=== PATIENT | female | born 1985 | race Caucasian/White ===

== ENCOUNTER 2019-07-28 14:22 | Observation (INO) | payer OTHER ==
--- NOTE | 2019-07-28 15:05 | ED ---
Recheck HPI - General Source: EMS Mode of arrival: EMS Limitations: no limitations <Maria De Jesus Bella - Last Filed: 07/28/19 17:04> <Ludy Cunningham - Last Filed: 08/05/19 14:08> - General Chief Complaint: Recheck/Abnormal Lab/Rx Stated Complaint: Hypertension Time Seen by Provider: 07/28/19 14:32 - History of Present Illness Initial Comments: 33-year-old female IV drug users 9 days presents emergency department for elevated blood pressure. Patient states she attempted to check in at [place] however was found to have elevated blood pressure and bilateral hand and leg swelling and was sent to the emergency department for further evaluation. Patient states that she did not have elevation of blood pressure before or during her . Patient states she did have the swelling near the end of her term. She states it has been persistent, if not better. Denies any chest pain shortness of breath. Denies nausea vomiting abdominal pain headache visual changes seizure activity. Denies heavy vaginal bleeding, fevers, discharge. Patient denies any other complaints appears nontoxic upon arrival. OBGYN not from this area, high risk due to drug use. (Maria De Jesus Bella) - Related Data Home Medications Medication Instructions Recorded Confirmed Buprenorphine HCl/Naloxone HCl 1 film SL DAILY 07/28/19 07/28/19 [Suboxone 8 mg-2 mg Sl Film] Allergies Allergy/AdvReac Type Severity Reaction Status Date / Time No Known Allergies Allergy Verified 07/28/19 17:41 Review of Systems ROS Other: All systems not noted in ROS Statement are negative. <Maria De Jesus Bella - Last Filed: 07/28/19 17:04> ROS Other: All systems not noted in ROS Statement are negative. <Ludy Cunningham - Last Filed: 08/05/19 14:08> ROS Statement: Those systems with pertinent positive or pertinent negative responses have been documented in the HPI. Past Medical History Past Medical History: Pneumonia Additional Past Medical History / Comment(s): hepatitis c History of Any Multi-Drug Resistant Organisms: None Reported Past Surgical History: Tonsillectomy Past Psychological History: Depression Smoking Status: Current every day smoker Past Alcohol Use History: None Reported Past Drug Use History: Cocaine, Heroin, Methamphetamine <Maria De Jesus Bella - Last Filed: 07/28/19 17:04> General Exam Limitations: no limitations <Maria De Jesus Bella - Last Filed: 07/28/19 17:04> - General Exam Comments Initial Comments: General: The patient is awake and alert, in no distress, and does not appear acutely ill. Eye: +3 mm pupils are equal, round and reactive to light, extra-ocular movements are intact. No nystagmus. There is normal conjunctiva bilaterally. No signs of icterus. Ears, nose, mouth and throat: There are moist mucous membranes and no oral lesions. Neck: The neck is supple, there is no tenderness or JVD. Cardiovascular: There is a regular rate and rhythm. No obvious murmur, rub or gallop is appreciated. Respiratory: Lungs are clear to auscultation, respirations are non-labored, breath sounds are equal. No wheezes, stridor, rales, or rhonchi. Gastrointestinal: Soft, non-distended, non-tender abdomen without masses or organomegaly noted. There is no rebound or guarding present. Musculoskeletal: Normal ROM, no tenderness. Strength 5/5. Sensation intact. Radial pulses equal bilaterally 2+. Neurological: A&O x 3. CN II-XII intact grossly, There are no obvious motor or sensory deficits. Coordination appears grossly intact. Speech is normal. Skin: Skin is warm and dry and no rashes or lesions are noted. No splinter hemorrhages or Janeway lesions or Osler nodes appreciated. Nonpitting edema of the bilateral lower extremities and UE b/l. Psychiatric: Cooperative, appropriate mood & affect, normal judgment. (Maria De Jesus Bella) Course Vital Signs 07/28/19 07/28/19 07/28/19 14:23 14:29 15:49 Temperature 97.9 F Pulse Rate 52 L Respiratory 19 Rate Blood Pressure 159/101 149/82 O2 Sat by Pulse 98 Oximetry 07/28/19 17:42 Temperature Pulse Rate 51 L Respiratory 21 Rate Blood Pressure 144/89 O2 Sat by Pulse 99 Oximetry Medical Decision Making - Lab Data Result diagrams: 07/28/19 15:32 07/28/19 15:32 <Maria De Jesus Bella - Last Filed: 07/28/19 17:04> - Lab Data Result diagrams: 07/28/19 15:32 07/28/19 15:32 <Ludy Cunningham Last Filed: 08/05/19 14:08> - Medical Decision Making 33-year-old female presented for extremity edema elevated blood pressure. Concern for preeclampsia. OB consult it after discussed the case by attending provider. LDH and uric acid pending. Blood pressure downward trending on repeat values. Patient denies any headache nausea vomiting abdominal pain visual changes seizures. Patient denies chest pain shortness of breath. Appears well. OBGYN recommended holding Magnesium at this time. Patient labs within acceptable limits aside from elevation of troponin at .132. Patient denies chest pain, fever, thrombocytopenia or noted thrombotic events. Patient will be admitted given history of IVDU for further evaluation of elevated troponin. Dr. Cunningham spoke to admitted provider who recommending trending levels and cardiology consultation. Ventricular rate 47 bpm, FL interval 136 ms, QRS duration 74 ms, QT/QTc 512/53ms. No ST elevation or depression. (Maria De Jesus Bella) I was available for consultation in the emergency department. The history and physical exam were done by the midlevel provider. I was consulted for this patients care. I reviewed the case with the midlevel provider and based on their presentation of the patient, I agree with the assessment, medical decision making and plan of care as documented. I evaluated the patient and discussed case with Dr. Marion within 1 hour of patients arrival as there is concern for pre-eclampsia. Dr. marion presented to the ED and evaluated the patient. Pre- eclampsia less likely from his evaluation. Recommended medical admission. Called and discussed case with admitting physician who accepted admission. Chart was dictated using [email or web address] dictation software. Attempts were made to correct any dictation errors however some typographical errors may persist. (Ludy Cunningham) - Lab Data Lab Results 07/28/19 07/28/19 07/28/19 Range/Units 15:32 15:32 15:32 WBC 10.0 (3.8-10.6) k/uL RBC 4.37 (3.80-5.40) m/uL Hgb 14.0 (11.4-16.0) gm/dL Hct 42.3 (34.0-46.0) % MCV 96.7 (80.0-100.0) fL MCH 31.9 (25.0-35.0) pg MCHC 33.0 (31.0-37.0) g/dL RDW 12.3 (11.5-15.5) % Plt Count 347 (150-450) k/uL Neutrophils % 81 % Lymphocytes % 12 % Monocytes % 5 % Eosinophils % 1 % Basophils % 0 % Neutrophils # 8.1 H (1.3-7.7) k/uL Lymphocytes # 1.2 (1.0-4.8) k/uL Monocytes # 0.5 (0-1.0) k/uL Eosinophils # 0.1 (0-0.7) k/uL Basophils # 0.0 (0-0.2) k/uL Sodium 140 (137-145) mmol/L Potassium 4.3 (3.5-5.1) mmol/L Chloride 110 H (98-107) mmol/L Carbon Dioxide 25 (22-30) mmol/L Anion Gap 5 mmol/L BUN 17 (7-17) mg/dL Creatinine 0.61 (0.52-1.04) mg/dL Est GFR (CKD-EPI)AfAm >90 (>60 ml/min/1.73 sqM) Est GFR (CKD-EPI)NonAf >90 (>60 ml/min/1.73 sqM) Glucose 106 H (74-99) mg/dL Uric Acid 6.9 (3.7-7.4) mg/dL Calcium 9.0 (8.4-10.2) mg/dL Total Bilirubin 0.3 (0.2-1.3) mg/dL AST 22 (14-36) U/L ALT 34 (9-52) U/L Alkaline Phosphatase 160 H (38-126) U/L Lactate Dehydrogenase 576 (313-618) U/L Troponin I (0.000-0.034) ng/mL NT-Pro-B Natriuret Pep pg/mL Total Protein 6.6 (6.3-8.2) g/dL Albumin 3.5 (3.5-5.0) g/dL Urine Color Yellow Urine Appearance Clear (Clear) Urine pH 7.0 (5.0-8.0) Ur Specific [place] 1.020 (1.001-1.035) Urine Protein Trace H (Negative) Urine Glucose (UA) Negative (Negative) Urine Ketones Negative (Negative) Urine Blood Large H (Negative) Urine Nitrite Negative (Negative) Urine Bilirubin Negative (Negative) Urine Urobilinogen 2.0 (<2.0) mg/dL Ur Leukocyte Esterase Large H (Negative) Urine RBC 1 (0-5) /hpf Urine WBC 14 H (0-5) /hpf Ur Squamous Epith Cells 6 H (0-4) /hpf Urine Bacteria Rare H (None) /hpf Hyaline Casts 1 (0-2) /lpf Urine Mucus Rare H (None) /hpf 07/28/19 07/28/19 Range/Units 15:32 15:32 WBC (3.8-10.6) k/uL RBC (3.80-5.40) m/uL Hgb (11.4-16.0) gm/dL Hct (34.0-46.0) % MCV (80.0-100.0) fL MCH (25.0-35.0) pg MCHC (31.0-37.0) g/dL RDW (11.5-15.5) % Plt Count (150-450) k/uL Neutrophils % % Lymphocytes % % Monocytes % % Eosinophils % % Basophils % % Neutrophils # (1.3-7.7) k/uL Lymphocytes # (1.0-4.8) k/uL Monocytes # (0-1.0) k/uL Eosinophils # (0-0.7) k/uL Basophils # (0-0.2) k/uL Sodium (137-145) mmol/L Potassium (3.5-5.1) mmol/L Chloride (98-107) mmol/L Carbon Dioxide (22-30) mmol/L Anion Gap mmol/L BUN (7-17) mg/dL Creatinine (0.52-1.04) mg/dL Est GFR (CKD-EPI)AfAm (>60 ml/min/1.73 sqM) Est GFR (CKD-EPI)NonAf (>60 ml/min/1.73 sqM) Glucose (74-99) mg/dL Uric Acid (3.7-7.4) mg/dL Calcium (8.4-10.2) mg/dL Total Bilirubin (0.2-1.3) mg/dL AST (14-36) U/L ALT (9-52) U/L Alkaline Phosphatase (38-126) U/L Lactate Dehydrogenase (313-618) U/L Troponin I 0.132 H* (0.000-0.034) ng/mL NT-Pro-B Natriuret Pep 1230 pg/mL Total Protein (6.3-8.2) g/dL Albumin (3.5-5.0) g/dL Urine Color Urine Appearance (Clear) Urine pH (5.0-8.0) Ur Specific [place] (1.001-1.035) Urine Protein (Negative) Urine Glucose (UA) (Negative) Urine Ketones (Negative) Urine Blood (Negative) Urine Nitrite (Negative) Urine Bilirubin (Negative) Urine Urobilinogen (<2.0) mg/dL Ur Leukocyte Esterase (Negative) Urine RBC (0-5) /hpf Urine WBC (0-5) /hpf Ur Squamous Epith Cells (0-4) /hpf Urine Bacteria (None) /hpf Hyaline Casts (0-2) /lpf Urine Mucus (None) /hpf Disposition Is patient prescribed a controlled substance at d/c from ED?: No Time of Disposition: 17:02 Decision to Admit Reason: Admit from EC Decision Date: 07/28/19 Decision Time: 17:02 <Maria De Jesus Bella - Last Filed: 07/28/19 17:04> <Ludy Cunningham - Last Filed: 08/05/19 14:08> Clinical Impression: Bilateral hand swelling, Bilateral swelling of feet, Elevated blood pressure reading, Elevated troponin, Hypertensive emergency Disposition: ADMITTED IP TO THIS [facility] Condition: Stable
[2019-07-28 15:41] LABS: Basophils % (A) 0 %; Eosinophils # (A) 0.1 k/uL (0-0.7); Eosinophils % (A) 1 %; HCT 42.3 % (34.0-46.0); Lymphocytes # (A) 1.2 k/uL (1.0-4.8); Lymphocytes % (A) 12 %; MCH 31.9 pg (25.0-35.0); MCV 96.7 fL (80.0-100.0); Mean Platelet Volume 7.7; Monocytes # (A) 0.5 k/uL (0-1.0); Monocytes % (A) 5 %; Neutrophils # (A) 8.1 k/uL (1.3-7.7); Neutrophils % (A) 81 %; Platelet Count 347 k/uL (150-450); RBC 4.37 m/uL (3.80-5.40); RDW 12.3 % (11.5-15.5)
[2019-07-28 15:45] LABS: Appearance,Urine Clear (Clear); Bacteria,Urine Rare /hpf; Bilirubin,Urine Negative (Negative); Blood,Urine Large (Negative); Color,Urine Yellow; Glucose,Urine (UA) Negative (Negative); Hyaline Casts,Urine 1 /lpf (0-2); Ketones,Urine Negative (Negative); Leukocyte Esterase,Urine Large (Negative); Mucus,Urine Rare /hpf; Nitrite,Urine Negative (Negative); Protein,Urine Trace (Negative); RBC,Urine 1 /hpf (0-5); Squamous Epithelial Cell,Urine 6 /hpf (0-4); WBC,Urine 14 /hpf (0-5)
[2019-07-28 15:49] LABS: ALT 34 U/L (9-52); AST 22 U/L (14-36); African American GFR (CKD) >90 (>60 ml/min/1.73 sqM); Albumin 3.5 g/dL (3.5-5.0); Alkaline Phosphatase 160 U/L (38-126); Anion Gap 5 mmol/L; Blood Urea Nitrogen 17 mg/dL (7-17); Carbon Dioxide 25 mmol/L (22-30); Chloride 110 mmol/L (98-107); Glucose 106 mg/dL (74-99); LDH 576 U/L (313-618); Non-African American GFR(CKD) >90 (>60 ml/min/1.73 sqM); Potassium 4.3 mmol/L (3.5-5.1); Sodium 140 mmol/L (137-145); Total Bilirubin 0.3 mg/dL (0.2-1.3); Total Protein 6.6 g/dL (6.3-8.2); Uric Acid 6.9 mg/dL (3.7-7.4)
--- NOTE | 2019-07-28 15:59 | XR ---
EXAMINATION TYPE: XR chest 2V DATE OF EXAM: 07/28/2019 COMPARISON: NONE HISTORY: Bilateral hand and feet swelling TECHNIQUE: Frontal and lateral views of the chest are obtained. FINDINGS: There is no focal air space opacity, pleural effusion, or pneumothorax seen. The cardiac silhouette size is within normal limits. The osseous structures are intact. IMPRESSION: No acute cardiopulmonary process.
[2019-07-28] MEDS ORDERED: LOPERAMIDE 2 MG CAP PO PRN (18:03)
[2019-07-28] MEDS ORDERED: ACETAMINOPHEN TAB 325 MG TAB PO PRN (18:03)
[2019-07-28] MEDS ORDERED: NALOXONE 0.4 MG/ML 1 ML VIAL IV PRN (18:03)
[2019-07-28] MEDS ORDERED: ONDANSETRON 4 MG/2 ML VIAL IVP PRN (18:03)
[2019-07-28] MEDS ORDERED: HYDROcodone/APAP 5-325MG 1 EACH TAB PO PRN (18:03)
[2019-07-28] MEDS ORDERED: MELATONIN 3 MG TABLET PO PRN (18:03)
--- NOTE | 2019-07-28 18:24 | P.HPIM ---
History of Present Illness H&P Date: 07/28/19 Chief Complaint: Elevated BP, troponin elevation Patient is a 33-year-old female with history of IV heroin abuse that presents to the hospital after being sent from [place] for concerns of elevated blood pressure. Patient states that she recently gave to a healthy baby on 07/19/2019 in [facility]. Patient also reports that she overdosed on heroin 2 nights ago. She was taken to [facility] once again, given 3 doses of Narcan before being revived. She was discharged on Suboxone to be admitted to [place] but was subsequently sent here for elevated BP. Patient reports no specific symptoms except for fatigue. She has not used heroin over the last 2 days. Patient reports a drug history over the span of 6 years, on and off. Patient reports using 0.5-1 g of heroin daily. There was also some concerns for puffy hands and legs but patient states that the swelling has actually come down since her and giving . She denies any headaches, nausea or vomiting, fever, cough, chest pain, shortness of breath, changes in urination or bowel habits. No changes in appetite or weight. She does report some chills and sweats but attributes this to heroin withdrawal. In the ED, she was noted to have a BP of 159/101. Vital signs were otherwise stable. CBC was unremarkable. CMP showed chloride of 110, glucose of 106 and alkaline phosphatase of 160. Troponin was elevated at 0.132, EKG showed sinus bradycardia. BNP was 1230, chest x-ray was negative. Urinalysis showed large leukocyte esterase and trace protein. Patient is admitted for elevated troponins and hypertensive urgency with cardiology on consult. Review of Systems Pertinent positives and negatives as discussed in HPI, a complete review of systems was performed and all other systems are negative. Past Medical History Past Medical History: Pneumonia Additional Past Medical History / Comment(s): hepatitis c History of Any Multi-Drug Resistant Organisms: None Reported Past Surgical History: Tonsillectomy Past Psychological History: Depression Smoking Status: Current every day smoker Past Alcohol Use History: None Reported Past Drug Use History: Cocaine, Heroin, Methamphetamine Medications and Allergies Home Medications Medication Instructions Recorded Confirmed Type Buprenorphine HCl/Naloxone HCl 1 film SL DAILY 07/28/19 07/28/19 History [Suboxone 8 mg-2 mg Sl Film] Pnv,Calcium 72/Iron/Folic Acid 1 tab PO DAILY 07/28/19 07/28/19 History [ Plus Tablet] Allergies Allergy/AdvReac Type Severity Reaction Status Date / Time No Known Allergies Allergy Verified 07/28/19 17:41 Physical Exam Vitals: Vital Signs Temp Pulse Resp BP Pulse Ox 07/28/19 17:42 51 L 21 144/89 99 07/28/19 15:49 149/82 07/28/19 14:29 159/101 07/28/19 14:23 97.9 F 52 L 19 98 Intake and Output 07/28/19 07/28/19 07/28/19 06:59 14:59 22:59 Other: Weight 67.585 kg General: [non toxic], [no distress], [appears at stated age] Derm: [warm], [dry] Head: [atraumatic], [normocephalic], [symmetric] Eyes: [EOMI], [no lid lag], [anicteric sclera] Mouth: [no lip lesion], [mucus membranes moist] Cardiovascular: [S1S2 reg], [no murmur], [positive DP pulse bilateral], Lungs: [CTA bilateral], [no rhonchi, no rales] , [no accessory muscle use] Abdominal: [soft], [ nontender to palpation], [no guarding], [no appreciable organomegaly] Ext: [no gross muscle atrophy], [1+ pitting lower extremity edema], [no contractures], [needle wei seen on the upper extremities bilaterally] Neuro: [ CN II-XI grossly intact], [no focal neuro deficits] Psych: [Alert], [oriented], [appropriate affect] Results CBC & Chem 7: 07/28/19 15:32 07/28/19 15:32 Labs: Abnormal Lab Results - Last 24 Hours (Table) 07/28/19 07/28/19 07/28/19 Range/Units 15:32 15:32 15:32 Neutrophils # 8.1 H (1.3-7.7) k/uL Chloride 110 H (98-107) mmol/L Glucose 106 H (74-99) mg/dL Alkaline Phosphatase 160 H (38-126) U/L Troponin I (0.000-0.034) ng/mL Urine Protein Trace H (Negative) Urine Blood Large H (Negative) Ur Leukocyte Esterase Large H (Negative) Urine WBC 14 H (0-5) /hpf Ur Squamous Epith Cells 6 H (0-4) /hpf Urine Bacteria Rare H (None) /hpf Urine Mucus Rare H (None) /hpf 07/28/19 Range/Units 15:32 Neutrophils # (1.3-7.7) k/uL Chloride (98-107) mmol/L Glucose (74-99) mg/dL Alkaline Phosphatase (38-126) U/L Troponin I 0.132 H* (0.000-0.034) ng/mL Urine Protein (Negative) Urine Blood (Negative) Ur Leukocyte Esterase (Negative) Urine WBC (0-5) /hpf Ur Squamous Epith Cells (0-4) /hpf Urine Bacteria (None) /hpf Urine Mucus (None) /hpf Assessment and Plan Assessment: Assessment and plan Troponin elevation likely demand ischemia from hypertensive urgency Hypertensive urgency, rule out preeclampsia Heroin abuse and withdrawal Abnormal urinalysis Troponin 0.132 with EKG showing sinus bradycardia. Patient has not complaining of any chest pain at this time. Likely due to demand ischemia from hypertensive urgency. Plans: Trend troponin/EKG to rule out ACS. Telemetry monitoring. Follow-up echocardiogram. Follow cardiology consultation. BP 159/101. UA showing trace proteinuria. Also has swelling in the extremities. Plans: Start clonidine, should also help with withdrawal symptoms. Avoid beta alejandra due to bradycardia. Consult OB to rule out preeclampsia. Monitor vitals, adjust medication as necessary. Plans: Needs [place]. We'll start methadone in the meantime. Imodium, Zofran as needed for diarrhea or nausea/vomiting. UA shows large leukocyte esterase. Patient asymptomatic. Plans: No antibiotics at this time. DVT prophylaxis: [SCD] Discussed with: [Patient] Anticipated discharge: [1-2 days] Anticipated discharge place: [[place]] A total of [45] minutes was spent on the care of this complex patient more than 50% of the time was spent in counseling and care coordination. Patient is admitted for anticipated greater than 48 hour admission for troponin elevation and hypertensive urgency. She is also showing signs of preeclampsia with OB consulted.
[2019-07-28 18:28] VITALS: BMI 27.2
[2019-07-28] MEDS: METHADONE 5 MG TAB PO SCH (18:56)
[2019-07-28] MEDS: cloNIDine HCL 0.1 MG TAB PO SCH (20:32)
[2019-07-29] MEDS: METHADONE 5 MG TAB PO SCH (08:09)
[2019-07-29 08:15] VITALS: TEMP 98
[2019-07-29] MEDS: cloNIDine HCL 0.1 MG TAB PO SCH (09:47)
--- NOTE | 2019-07-29 11:07 | P.DS ---
Providers Date of admission: 07/28/19 17:09 Expected date of discharge: 07/29/19 Attending physician: River Lopez MD Consults: 07/28/19 17:02 Consult Physician Urgent Consulting Provider: Rod Slater Consult Reason/Comments: elevated trop, hx of IVDU, 10 days post , elevated BP Do you want consulting provider notified?: Yes 07/28/19 18:13 Consult Physician Stat Consulting Provider: Tawny Herring Consult Reason/Comments: Post , w/ swelling possible preeclampsia? Do you want consulting provider notified?: Yes Primary care physician: Stated None Hospital Course: Patient is a 33-year-old female with history of IV heroin abuse that presents to the hospital after being sent from [place] for concerns of elevated blood pressure. Patient states that she recently gave to a healthy baby on 07/19/2019 in [facility]. Patient also reports that she overdosed on heroin 2 nights ago. She was taken to [facility] once again, given 3 doses of Narcan before being revived. She was discharged on Suboxone to be admitted to [place] but was subsequently sent here for elevated BP. Patient reports no specific symptoms except for fatigue. She has not used heroin over the last 2 days. Patient reports a drug history over the span of 6 years, on and off. Patient reports using 0.5-1 g of heroin daily. There was also some concerns for puffy hands and legs but patient states that the swelling has actually come down since her and giving . She denies any headaches, nausea or vomiting, fever, cough, chest pain, shortness of breath, changes in urination or bowel habits. No changes in appetite or weight. She does report some chills and sweats but attributes this to heroin withdrawal. In the ED, she was noted to have a BP of 159/101. Vital signs were otherwise stable. CBC was unremarkable. CMP showed chloride of 110, glucose of 106 and alkaline phosphatase of 160. Troponin was elevated at 0.132, EKG showed sinus bradycardia. BNP was 1230, chest x-ray was negative. Urinalysis showed large leukocyte esterase and trace protein. Patient is admitted for elevated troponins and hypertensive urgency with cardiology on consult. With regard for elevated troponins, plans rule out acute coronary syndrome. Troponin was 0.132, 0.124, 0.135. This is likely related to demand ischemia fr om hypertensive urgency. Cardiology was consulted and recommended echocardiogram. Her blood pressure was controlled with clonidine 0.1 mg by mouth twice a day. Due to her elevated blood pressure, trace proteinuria and swelling in her extremities there is some concerns for preeclampsia. OB was consulted and evaluated the patient. OB felt that this patient did not have preeclampsia and her symptoms were likely rather due to withdrawal from heroin. She was given clonidine and methadone for her heroin withdrawal. Her symptoms are treated with Imodium and Zofran as needed. Patient is noted to have sinus bradycardia with a heart rate in the 40s. This is thought to be related to her use of heroin. Methadone was discontinued. Patient was seen and examined. No acute events overnight. She reports fatigue but denies any other symptoms. She denies any chest pain, shortness of breath or palpitations. No nausea or vomiting. No fever or chills. General: [non toxic], [no distress], [appears at stated age] Derm: [warm], [dry] Head: [atraumatic], [normocephalic], [symmetric] Eyes: [EOMI], [no lid lag], [anicteric sclera] Mouth: [no lip lesion], [mucus membranes moist] Cardiovascular: [S1S2 reg], [no murmur], [positive DP pulse bilateral], Lungs: [CTA bilateral], [no rhonchi, no rales] , [no accessory muscle use] Abdominal: [soft], [ nontender to palpation], [no guarding], [no appreciable organomegaly] Ext: [no gross muscle atrophy], [1+ pitting lower extremity edema], [no contractures], [needle wei seen on the upper extremities bilaterally] Neuro: [no focal neuro deficits] Psych: [Alert], [oriented], [appropriate affect] Assessment and plan Troponin elevation likely demand ischemia from hypertensive urgency Hypertensive urgency, rule out preeclampsia Bradycardia Heroin abuse and withdrawal Abnormal urinalysis Troponin 0.132, 0.124, 0.135 with EKG showing sinus bradycardia. Patient has not complaining of any chest pain at this time. Likely due to demand ischemia from hypertensive urgency. Plans: ACS ruled out. Telemetry monitoring. Follow-up echocardiogram. Follow cardiology consultation. BP 144/84. UA showing trace proteinuria. Also has swelling in the extremities. Plans: Start clonidine, should also help with withdrawal symptoms. Avoid beta alejandra due to bradycardia. OB consulted, recommendations appreciated, preeclampsia ruled out. Monitor vitals, adjust medication as necessary. Heart rate in the 40s and 50s. Plans: Discontinue methadone. Could possibly be related to heroin use. Telemetry monitoring. Follow cardiac recommendations. Plans: Needs [place]. We'll start methadone in the meantime. Imodium, Zofran as needed for diarrhea or nausea/vomiting. UA shows large leukocyte esterase. Patient asymptomatic. Plans: No antibiotics at this time. [Discussed with cardiology, echocardiogram pending. DC planning based on echocardiogram results. Patient would need to go to [place] directly from hospital. She is pending clinical improvement. Likely DC in 1-2 days.] Health Concerns: Chest x-ray Patient Condition at Discharge: Stable Plan - Discharge Summary New Discharge Prescriptions: No Action Buprenorphine HCl/Naloxone HCl [Suboxone 8 mg-2 mg Sl Film] 1 film SL DAILY Pnv,Calcium 72/Iron/Folic Acid [ Plus Tablet] 1 tab PO DAILY Discharge Medication List Buprenorphine HCl/Naloxone HCl [Suboxone 8 mg-2 mg Sl Film] 1 film SL DAILY 07/28/19 [History] Pnv,Calcium 72/Iron/Folic Acid [ Plus Tablet] 1 tab PO DAILY 07/28/19 [History] Follow up Appointment(s)/Referral(s): None,Stated [Primary Care Provider] - 1-2 days
--- NOTE | 2019-07-29 11:09 | P.CON ---
Consult Note - . Consult date: 07/29/19 Assessment/Plan:: This is a 33-year-old white female 5 para 3114 status post vaginal delivery in [facility] 10 days ago. She gave to a liveborn male infant, 9 lbs. 1 oz., denied history of hypertension or any issues with the . She was discharged home 2 days later. Patient went to [place] for admission for heroin rehabilitation. Her blood pressure there was found to be elevated, 187/112. She was therefore sent [facility] for evaluation where she was admitted under the hospitalist's care. Am consult this morning to rule out preeclampsia. Patient denies headache, visual changes, or right upper quadrant pain. This morning she is tired, but otherwise has no complaints. Past medical history patient states is negative. Past surgical history bilateral carpal tunnel repair, tonsillectomy as a child. Current medications she denies. ALLERGIES none known. Social history patient has been a tobacco smoker for 15 years, currently smoking one half pack per day. She states she has been a heroin user for 6 years "and other stuff". She is single, unemployed. She does not have custody of her children. Past obstetric history normal spontaneous vaginal deliveries 4, 9 lbs. 1 oz. recently, 8 lbs. 11 oz., 5 lbs. 7 oz., 7 lbs. 6 oz. She has had 1 voluntary termination of . She denies any unusual history with pregnancies or deliveries. Family history is unremarkable. On exam she is 5 foot 2 inches, 143 pounds, lip, I broke, and tongue. Tattoos of the arm and back. Otherwise skin is negative. Chest is clear in all manning. Breasts are only minimally engorged, no obvious masses. Abdomen is soft, nontender, fundus is in the midline, smooth, 16-18 weeks size, nontender. Appropriate for patient's past obstetric history. Extremities reveal no edema in the lower extremities, 2+ reflexes, no clonus. There is a mild amount of edema in the hands. AST 22, ALTs 34, uric acid 6.9, platelets 347,000, hemoglobin 14.0. Alk phos slightly elevated at 160. Impression: 10 days with a history of hypertension noted yesterday at [place] when patient presented for admission for heroin abuse and treatment. No signs or symptoms of preeclampsia today. Normal lab profile, physical exam also within normal limits. Plan: Continue medical management per team. 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 Thank you for the consultat cindy.
[2019-07-29 12:49] VITALS: BP 142/78; PULSE 58; RESP 21
--- NOTE | 2019-07-29 14:00 | ECHOF ---
Referral Reason:rule out endocarditis MEASUREMENTS -------- HEIGHT: 157.5 cm WEIGHT: 64.9 kg BP: 159/101 RVIDd: 3.6 cm (< 3.3) IVSd: 1.2 cm (0.6 - 1.1) LVIDd: 4.1 cm (3.9 - 5.3) LVPWd: 1.0 cm (0.6 - 1.1) IVSs: 1.4 cm LVIDs: 3.1 cm LVPWs: 1.6 cm LA Diam: 4.6 cm (2.7 - 3.8) LAESV Index (A-L): 34.21 ml/m Ao Diam: 2.5 cm (2.0 - 3.7) AV Cusp: 1.9 cm (1.5 - 2.6) LA Diam: 3.8 cm (2.7 - 3.8) MV EXCURSION: 19.132 mm (> 18.000) MV EF SLOPE: 97 mm/s (70 - 150) EPSS: 0.3 cm MV E Doug: 0.95 m/s MV DecT: 174 ms MV A Doug: 0.66 m/s MV E/A Ratio: 1.44 RAP: 5.00 mmHg RVSP: 44.35 mmHg FINDINGS -------- Sinus rhythm. This was a technically good study. The left ventricular size is normal. There is mild concentric left ventricular hypertrophy. Overa ll left ventricular systolic function is normal with, an EF between 55 - 60 %. The right ventricle is normal in size. LA is midly dilated 29-33ml/m2. The right atrial size is normal. The aortic valve is trileaflet, and appears structurally normal. No aortic stenosis or regurgitation. The mitral valve is normal. Mild mitral regurgitation is present. Moderate tricuspid regurgitation present. There is mild pulmonary hypertension. The right ventric ular systolic pressure, as measured by Doppler, is 44.35mmHg. Trace/mild (physiologic) pulmonic regurgitation. The aortic root size is normal. There is no pericardial effusion. CONCLUSIONS -------- 1. Sinus rhythm. 2. This was a technically good study. 3. The left ventricular size is normal. 4. There is mild concentric left ventricular hypertrophy. 5. Overall left ventricular systolic function is normal with, an EF between 55 - 60 %. 6. The right ventricle is normal in size. 7. LA is midly dilated 29-33ml/m2. 8. The aortic valve is trileaflet, and appears structurally normal. No aortic stenosis or regurgitati on. 9. Mild mitral regurgitation is present. 10. Moderate tricuspid regurgitation present. 11. There is mild pulmonary hypertension. 12. Trace/mild (physiologic) pulmonic regurgitation. 13. The aortic root size is normal. 14. There is no pericardial effusion. [employer] MISSILEMAN: Amber Mcallister RDCS
--- NOTE | 2019-07-29 18:29 | CONS ---
CONSULTATION Mrs. Rizvi is a 33-year-old female with history of chronic heroin use who had a delivery of a baby recently that is her 4th, who presented to [place] for admission for detox but was noted to have an elevated blood pressure and was sent to the emergency room. She has some peripheral edema that improved. She denies any chest pain. She denies any dizziness. She denies any palpitation. She denies any history of hypertension. She has been using heroin on and off for the last 6 years. Cardiology consultation was requested because of mild troponin elevation. She has no history of exertional chest discomfort or exertional dyspnea. She smokes half a pack a day on a regular basis. REVIEW OF SYSTEMS: RESPIRATORY system: She has no recent wheezing. No cough. No history of documented obstructive lung disease. GI: No recent GI bleed. No peptic ulcer disease. system: No dysuria or hematuria. NERVOUS SYSTEM: No history of stroke or seizure. PHYSICAL EXAMINATION: A 33-year-old female, alert, oriented, no apparent distress. Blood pressure 144/80 with a heart rate in the 60s. Her blood pressure on presentation was 159/101. HEAD: Normocephalic. EYES: Sclerae anicteric. NECK: Good carotid upstroke. No bruit. No jugular venous distention. LUNGS: Clear to auscultation. HEART: Regular rate and rhythm, S1, S2. No S3. No S4. No murmur. No rub. ABDOMEN: Soft, nontender. Positive bowel sounds. No organomegaly. EXTREMITIES: Trace edema. LAB DATA: Troponin 0.132, 0.124, 0.135. BUN and creatinine 17 and 0.6, hemoglobin of 14, white blood cell of 10.0. EKG revealed sinus mechanism, rate of [address]-segment changes. Chest x-ray shows no acute infiltrate. IMPRESSION: 1. Mild troponin elevation. No evidence of acute coronary syndrome. Patient had no chest discomfort or EKG changes. It could be related to her hypertension. 2. Hypertension, under better control following a recent delivery. 3. History of heroin abuse. 4. History of chronic tobacco use. RECOMMENDATIONS AND DISCUSSION: From the cardiac standpoint, I will review results of her echocardiogram. If there is no segmental wall motion abnormality, then no further cardiac workup will be needed. Thank you for this consult. Will follow with you. MMODL / IJN: [id number] /
== END 2019-07-29 17:10 ==
LOC: EC 14:22 → UNDOADMIN 17:09 → INTOOBSV 17:09 → 3SCARD 17:09 → UNDODISIN 07-29 17:10
PROVIDERS: ADMIT Family Medicine; ATTEND Family Medicine
DX: O16.5 Unspecified maternal hypertension, complicating the puerperium (principal); O98.43 Viral hepatitis complicating the puerperium; O99.89 Other specified diseases and conditions complicating pregnancy, childbirth and the puerperium; O99.345 Other mental disorders complicating the puerperium; O99.335 Smoking (tobacco) complicating the puerperium; F17.210 Nicotine dependence, cigarettes, uncomplicated; F32.9 Major depressive disorder, single episode, unspecified; B19.20 Unspecified viral hepatitis C without hepatic coma; Z87.01 Personal history of pneumonia (recurrent)
CPT/HCPCS: 93005 ×2; 99285; 36415; 93306; 83880; 80053; 83615; 84550; 84484 ×2; 85025; 81001; 71046; G0378 ×2; S0109 ×2